=== PATIENT | female | born 1955 | race Hispanic/Latino ===

== ENCOUNTER 2016-11-28 05:44 | Day surgery (SDC) | payer MEDICARE ==
[2016-11-28 06:44] LABS: Basophils % (Auto) 0.8 % (0.0-1.8); Eosinophils % (Auto) 1.8 % (0.0-4.3); Hematocrit 35.7 % (30.3-42.9); Hemoglobin 11.8 gm/dl (10.1-14.3); Mean Corpuscular HGB Conc 33 % (30-34); Mean Corpuscular Hemoglobin 33 pg (28-32); Mean Corpuscular Volume 100 fl (79-97); Platelet Count 148 K/mm3 (140-440); Red Blood Count 3.58 M/mm3 (3.65-5.03)
[2016-11-28 06:55] LABS: INR 1.23 (0.87-1.13)
[2016-11-28] MEDS ORDERED: NACL 0.9% 500 ML 500 ML IV SCH (07:00)
[2016-11-28 07:26] LABS: BUN/Creatinine Ratio 4.56; Calcium 9.2 mg/dL (8.4-10.2); Chloride 99.5 mmol/L (98-107)
[2016-11-28] MEDS ORDERED: VERSED ONE (08:02)
[2016-11-28] MEDS ORDERED: HEPARIN/NS 5000 UNIT/500ML(CATH LAB) 1,000 ML IR ONE (08:02)
[2016-11-28] MEDS ORDERED: SUBLIMAZE ONE (08:03)
[2016-11-28] MEDS ORDERED: NITROGLYCERIN SYRINGE 0 ML ONE (08:03)
[2016-11-28] MEDS ORDERED: XYLOCAINE 2% INFILTRATI ONE (08:03)
--- NOTE | 2016-11-28 09:05 | Discharge Summary ---
Short Stay Discharge Plan Activity: no driving until cleared by PCP (X 48HRS) Diet: low fat, low cholesterol, low salt Special Instructions: no heavy lifting, other (POST CARDIAC CATH INSTRUCTIONS) Additional Instructions: HOLD ELIQUIS FOR 48hrs POST CARDIAC CATH. Follow up with: ROBBY DALTON MD [Primary Care Provider] - 7 Days NORIS HUMPHRIES MD [Staff Physician] - 7 Days
[2016-11-28] MEDS ORDERED: ULTRAM ONE ×2 (10:14→14:01)
[2016-11-28] MEDS: ULTRAM PO PRN ×2 (10:45→14:00)
[2016-11-28 15:51] VITALS: BP 102/48
--- NOTE | 2016-11-29 15:04 | Cardiac Catherization Report ---
SEDATION: Intravenous Versed and fentanyl. TISSUE SAMPLES: None. PREPROCEDURE DIAGNOSIS: Unstable angina. POSTPROCEDURE DIAGNOSIS: Moderate coronary artery disease. HEMODYNAMICS: Central aortic pressure 156/67, left ventricular pressure 155/17. ANGIOGRAPHIC RESULTS: 1. Left ventricle: The ventriculogram reveals a normal sized left ventricle with normal systolic function. The ejection fraction is approximately 60%. There is probable left ventricular hypertrophy. 2. Right coronary artery: This is a codominant vessel and it is diffusely irregular without severe stenotic lesions. 3. Left coronary artery: This vessel is heavily calcified and is diffusely irregular. The left main is free of remarkable disease. The circumflex contains a distal 30% stenosis. The LAD system contains a mid 30% stenosis and an early distal 30% stenosis. The diagonal branch coming off the midportion of the vessel contains an osteal 70% stenosis and this is a fairly small caliber vessels. FINAL IMPRESSION: Recent symptoms suggestive of class 4 angina, improved. There is a 70% stenosis in a small diagonal vessel and normal left ventricular function. Consider other organ systems as possible etiology of this patient's chest pain. PLAN: Continue dialysis. Office followup within 7 days. Antianginal therapy. CAD risk factor modification. JOB# [id number] LASHELL/SHAKA
== END 2016-11-28 17:05 | disposition home or self-care (01) ==
LOC: CATHLABREC 05:44
PROVIDERS: ATTEND Internal Medicine
DX: I25.110 Atherosclerotic heart disease of native coronary artery with unstable angina pectoris (principal); E11.22 Type 2 diabetes mellitus with diabetic chronic kidney disease; N18.9 Chronic kidney disease, unspecified; I12.9 Hypertensive chronic kidney disease with stage 1 through stage 4 chronic kidney disease, or unspecified chronic kidney disease; E11.59 Type 2 diabetes mellitus with other circulatory complications; E78.5 Hyperlipidemia, unspecified; F17.210 Nicotine dependence, cigarettes, uncomplicated; I48.91 Unspecified atrial fibrillation; I27.2 Other secondary pulmonary hypertension; J44.9 Chronic obstructive pulmonary disease, unspecified; E66.3 Overweight; Z68.41 Body mass index [BMI] 40.0-44.9, adult; Z98.890 Other specified postprocedural states; Z72.89 Other problems related to lifestyle; Z98.62 Peripheral vascular angioplasty status; Z82.49 Family history of ischemic heart disease and other diseases of the circulatory system
CPT/HCPCS: 36415; 80048; 85025; 85610; 85730; 93005; 93010; 93458; J1644; J2250; J3010; J7040; Q9967

== ENCOUNTER 2017-12-05 08:32 | Outpatient (CLI) | payer MEDICARE ==
[2017-12-05] MEDS ORDERED: XYLOCAINE TOPICAL 4% TP ONE (09:20)
== END 2017-12-05 08:33 | disposition home or self-care (01) ==
LOC: WOUND 08:32
PROVIDERS: ATTEND Surgery
DX: E11.621 Type 2 diabetes mellitus with foot ulcer (principal); L97.521 Non-pressure chronic ulcer of other part of left foot limited to breakdown of skin; I10 Essential (primary) hypertension; E66.9 Obesity, unspecified; Z99.2 Dependence on renal dialysis; Z90.710 Acquired absence of both cervix and uterus; F17.200 Nicotine dependence, unspecified, uncomplicated; Z68.42 Body mass index [BMI] 45.0-49.9, adult
CPT/HCPCS: 11042; G0463

== ENCOUNTER 2017-12-09 06:25 | Day surgery (SDC) | payer MEDICARE ==
[~2017-12-09 06:25] MED LIST: ANCEF/STERILE WATER 2 GM/20 ML 2 GM/20 ML SYRINGE IV NR; NACL 0.9% 1000 ML 1,000 ML IV SCH
[2017-12-09] MEDS ORDERED: NACL BACTERIOSTATIC INFILTRATI ONE (06:26)
[2017-12-09] MEDS ORDERED: XYLOCAINE MPF 2% ONE (07:18)
[2017-12-09] MEDS ORDERED: DILAUDID ONE (07:19)
[2017-12-09] MEDS ORDERED: DIPRIVAN 10 MG/ML IV ONE (07:19)
[2017-12-09] MEDS ORDERED: GELFOAM TP ONE ×2 (07:24→09:31)
[2017-12-09] MEDS ORDERED: HEPARIN 10,000 UNITS/10 ML ONE (07:24)
[2017-12-09] MEDS ORDERED: MARCAINE-EPI 0.5%-1:200,000 INFILTRATI ONE (07:24)
[2017-12-09] MEDS ORDERED: NACL 0.9% 500 ML 500 ML ONE (07:24)
[2017-12-09] MEDS ORDERED: PROTAMINE SULFATE ONE (07:26)
[2017-12-09] MEDS ORDERED: XYLOCAINE 1% 20 mL ONE (07:26)
[2017-12-09] MEDS ORDERED: PAPAVERINE ONE (07:26)
[2017-12-09] MEDS ORDERED: THROMBIN (BOVINE) TP ONE ×2 (07:26→09:31)
[2017-12-09] MEDS ORDERED: DILAUDID IV PRN (07:27)
[2017-12-09] MEDS ORDERED: SODIUM BICARBONATE ONE (07:27)
[2017-12-09] MEDS ORDERED: ZOFRAN IV PRN (07:27)
[2017-12-09] MEDS ORDERED: PROAIR IH ONE ×2 (07:40→09:39)
[2017-12-09] MEDS ORDERED: AMIDATE IV ONE (07:45)
[2017-12-09] MEDS ORDERED: ZEMURON IV ONE (07:47)
[2017-12-09] MEDS ORDERED: NEO SYNEPHRINE ONE (07:54)
[2017-12-09] MEDS ORDERED: PEPCID IV NR (08:00)
[2017-12-09] MEDS ORDERED: VERSED IV NR (08:00)
[2017-12-09 08:05] LABS: Hematocrit 34.4 % (30.3-42.9); Mean Corpuscular HGB Conc 32 % (30-34); Mean Corpuscular Hemoglobin 32 pg (28-32); Mean Corpuscular Volume 101 fl (79-97); Platelet Count 126 K/mm3 (140-440)
[2017-12-09 08:09] LABS: Calcium 9.4 mg/dL (8.4-10.2)
[2017-12-09 08:10] LABS: Red Cell Distribution Width 24.3 % (13.2-15.2)
--- NOTE | 2017-12-09 08:20 | Anesthesia Consultation ---
Anesthesia Consult and Med Hx Date of service: 12/09/17 - Airway Anesthetic Teeth Evaluation: Dentures, Edentulous ROM Head & Neck: Adequate Mental/Hyoid Distance: Adequate Mallampati Class: Class I Intubation Access Assessment: Probably Good - Pulmonary Exam CTA: Yes - Cardiac Exam Anesthetic Concerns: atrial fibrillation - Pre-Operative Health Status ASA Pre-Surgery Classification: ASA4 Proposed Anesthetic Plan: General - Pulmonary Hx Smoking: Yes (1/2 PPD X 40 YRS) Hx Asthma: Yes (albuterol MDI 3 puffs preop) COPD: Yes (DAILY INHALER) Hx Pneumonia: Yes Hx Sleep Apnea: Yes - Cardiovascular System Hx Hypertension: Yes (X 15 YRS) Hx Coronary Artery Disease: Yes Hx Heart Attack/AMI: No Hx Cardia Arrhythmia: Yes (a-fib, on coumadin) Hx Peripheral Vascular Disease: Yes - Gastrointestinal Hx Gastroesophageal Reflux Disease: Yes (no current symptoms) - Endocrine Hx End Stage Renal Disease: Yes (AVG LEFT ARM) Hx Liver Disease: Yes (fatty liver) Hx Insulin Dependent Diabetes: Yes - Hematic Hx Anemia: Yes - Other Systems Hx Cancer: No Hx Obesity: Yes (morbid) - Additional Comments Anesthesia Medical History Comments: no GAC, no FHAC
[2017-12-09] MEDS ORDERED: NITROGLYCERIN SYRINGE 9 ML ONE (09:20)
[2017-12-09] MEDS ORDERED: NACL 0.9% IR ONE (09:30)
[2017-12-09] MEDS ORDERED: MARCAINE-EPI/PF 0.5%-1:200,000 INFILTRATI ONE (09:31)
[2017-12-09] MEDS ORDERED: NITROGLYCERIN SYRINGE UD ONE ×2 (09:31)
[2017-12-09] MEDS ORDERED: HEPARIN 10,000 UNITS/10 ML 2,000 UNIT in NACL 0.9% 500 ML 500 ML IR ONE (09:32)
[2017-12-09] MEDS ORDERED: ADRENALIN ONE (09:39)
[2017-12-09 10:09] LABS: Total Cells Counted 100
[2017-12-09 10:10] LABS: Anisocytosis 2+; Macrocytosis 1+; Platelet Estimate Cons; Poikilocytosis 1+; Tear Drop Cells Few
--- NOTE | 2017-12-09 11:04 | Short Stay Summary ---
Short Stay Documentation Date of service: 12/09/17 - History H&P: obtained from office - Allergies and Medications Current Medications: Allergies No Known Allergies Allergy (Verified 11/17/13 08:20) Home Medications Medication Instructions Recorded Confirmed Last Taken Type Lisinopril [Zestril TAB] 20 mg PO QHS #30 tablet 10/21/15 12/04/17 11/27/16 Rx ALBUTEROL Inhaler [ProAir HFA 2 puff IH BID 11/28/16 12/04/17 11/28/16 History Inhaler] Carvedilol [Coreg] 3.125 mg PO BID 11/28/16 12/04/17 11/27/16 History Montelukast [Singulair] 10 mg PO DAILY 11/28/16 12/04/17 11/27/16 History Pravastatin Sodium 40 mg PO DAILY 11/28/16 12/04/17 11/27/16 History Sennosides/Docusate Sodium [Stool 1 each PO DAILY 11/28/16 12/04/17 11/27/16 History Softener Tablet] Vit B Comp No.3/Folic/C/Biotin 1 each PO DAILY 11/28/16 12/04/17 11/27/16 History [Nephro-Fabian Rx Tablet] Calcium Acetate [Phoslo] 667 mg PO TID 12/04/17 12/04/17 Unknown History FLUoxetine HCL [PROzac] 40 mg PO QDAY 12/04/17 12/04/17 Unknown History Midodrine HCl 10 mg PO BID 12/04/17 12/04/17 Unknown History Pantoprazole [Protonix] 40 mg PO QDAY 12/04/17 12/04/17 Unknown History Temazepam [Restoril] 15 mg PO QHS PRN 12/04/17 12/04/17 Unknown History Apixaban [Eliquis] 2.5 mg PO BID 12/05/17 12/05/17 Unknown History Biotin 1 mg PO DAILY 12/05/17 12/05/17 Unknown History Fluticasone [Flonase] 1 spray NS QDAY 12/05/17 12/05/17 Unknown History Pantoprazole [Protonix] 40 mg PO QDAY 12/05/17 12/05/17 Unknown History Active Medications Famotidine (Pepcid) 20 mg IV PREOP NR Stop: 12/09/17 12:00 Last Admin: 12/09/17 07:45 Dose: 20 mg Hydromorphone HCl (Dilaudid) 0.5 mg IV Q10MIN PRN PRN Reason: Pain , Severe (7-10) Stop: 12/09/17 13:00 Cefazolin Sodium (Ancef/Sterile Water 2 Gm/20 Ml) 2 gm in 20 mls @ 80 mls/hr IV PREOP NR; Protocol Stop: 12/09/17 23:59 Sodium Chloride (Nacl 0.9% 1000 Ml) 1,000 mls @ 42 mls/hr IV DIRECT ANIBAL Last Admin: 12/09/17 07:35 Dose: 42 mls/hr Midazolam HCl (Versed) 2 mg IV PREOP NR Stop: 12/09/17 23:59 Last Admin: 12/09/17 08:06 Dose: 2 mg Ondansetron HCl (Zofran) 4 mg IV ONCE PRN PRN Reason: Nausea And Vomiting Stop: 12/09/17 12:00 - Brief post op/procedure progress note Date of procedure: 12/09/17 Pre-op diagnosis: failing av fistula left arm Post-op diagnosis: same Procedure: open revision of fistula left arm Anesthesia: GETA, local Findings: good thrill at end of procedure, hand well perfused Surgeon: DAVIDSON DAS Braiding Machine Tender: CLAUDIA STEPHENS Estimated blood loss: minimal Pathology: none Condition: stable - Hospital course Hospital course: benign - Disposition Condition at discharge: Good Disposition: DC-01 TO HOME OR SELFCARE Short Stay Discharge Plan Activity: advance as tolerated Diet: advance as tolerated Wound: per your surgeon's advice Follow up with: DAVIDSON DAS MD [Staff Physician] - 7 Days Prescriptions: HYDROcodone/APAP 5-325 [[place] 5/325] 1 each PO Q4HR PRN #30 tablet PRN Reason: Pain
--- NOTE | 2017-12-09 11:08 | Operative Report ---
Operative Report Operative Report: Date of procedure: 12/09/2017 Pre-operative diagnosis: Failing arteriovenous fistula, left upper extremity Post-operative diagnosis: Same Procedure name(s): Revision of left upper extremity radiocephalic fistula at the wrist Surgeon: Shabbir Payne MD Rhinestone Setter: [RYAN Sue] Anesthesia: Gen. with local supplementation EBL: Minimal Operative indication: Patient is a 62-year-old woman with end-stage renal failure. She has a failing arteriovenous fistula at the left wrist. She presents now for revision of the arterial anastomosis. Findings: Excellent thrill in the fistula at the end of the procedure. The left hand was warm and well-perfused. Procedure: The patient was placed on the table in supine position and given appropriate anesthesia. The area over the left arm was prepped with a ChloraPrep solution and draped in the usual sterile fashion. Real-time ultrasound was used to identify the radial artery and to select a segment of it proximal to the wrist which was in good condition. The skin was marked appropriately. The site of the skin incision was then infiltrated with half percent Marcaine with epinephrine. A linear incision was made along the radial artery. Dissection was carried out to identify the distal end of the R [place] venous fistula near the radial anastomosis. There was a large amount of redundant vein in the area and this was freed up from the surrounding tissue. The radial artery was then dissected free from the surrounding tissue slightly proximally to this. There was an excellent pulse in the radial artery. The radial artery appeared to be in reasonable condition. Patient was given 2000 units of intravenous heparin and 3 minutes were allowed to pass. An arteriotomy was made in the radial artery after it was controlled. The arteriotomy was approximately centimeter in length. The arterial end of the fistula was then divided from its arterial anastomosis with the radial artery distally. There was a stump of the vein left on the artery for closure. The vein was then transferred more proximally to the normal portion of the radial artery. An anastomosis created between the 2 vessels using running 6-0 Prolene. The vessels were flushed and Benadryl of any air or debris. The anastomosis is completed and flow was started into the arterial venous fistula without complication. There was excellent thrill in the arterial venous fistula. Meticulous hemostasis is obtained. Closure was done with 3-0 Vicryl on the subcutaneous tissue. 4-0 PDS was used on the skin. Sterile dressings were applied. The patient tolerated the procedure well. Sponge, needle, and instrument counts were reported as correct. Patient had an excellent thrill in the arterial venous fistula along the entire lower arm. There was excellent perfusion of the hand. She was taken from the operating room to the recovery room in stable condition.
--- NOTE | 2017-12-09 11:12 | Post Anesthesia Evaluation ---
- Post Anesthesia Evaluation Patient Participated: Yes Airway Patent: Yes Stable Respiratory Function: Yes Nausea/Vomiting: No Temp > 96.8F: Yes Pain Manageable: Yes Adequeate Hydration: Yes Anesthesia Complications: No
[2017-12-09] MEDS ORDERED: ZOFRAN IV ONE (11:48)
[2017-12-09] MEDS ORDERED: PHENERGAN PR ONE (13:45)
[2017-12-09 15:53] VITALS: BP 103/56
== END 2017-12-09 15:05 | disposition home or self-care (01) ==
LOC: OR 06:25
PROVIDERS: ATTEND Surgery Vascular Surgery
DX: T82.510A Breakdown (mechanical) of surgically created arteriovenous fistula, initial encounter (principal); E11.22 Type 2 diabetes mellitus with diabetic chronic kidney disease; I13.2 Hypertensive heart and chronic kidney disease with heart failure and with stage 5 chronic kidney disease, or end stage renal disease; N18.6 End stage renal disease; I50.9 Heart failure, unspecified; J44.9 Chronic obstructive pulmonary disease, unspecified; G47.30 Sleep apnea, unspecified; I25.10 Atherosclerotic heart disease of native coronary artery without angina pectoris; I48.91 Unspecified atrial fibrillation; K21.9 Gastro-esophageal reflux disease without esophagitis; I73.9 Peripheral vascular disease, unspecified; E78.00 Pure hypercholesterolemia, unspecified; M81.0 Age-related osteoporosis without current pathological fracture; F32.9 Major depressive disorder, single episode, unspecified; F17.210 Nicotine dependence, cigarettes, uncomplicated; E66.01 Morbid (severe) obesity due to excess calories; Z68.41 Body mass index [BMI] 40.0-44.9, adult; Z79.01 Long term (current) use of anticoagulants; Z79.899 Other long term (current) drug therapy; Z98.49 Cataract extraction status, unspecified eye; Z90.49 Acquired absence of other specified parts of digestive tract; Z98.890 Other specified postprocedural states; Y83.2 Surgical operation with anastomosis, bypass or graft as the cause of abnormal reaction of the patient, or of later complication, without mention of misadventure at the time of the procedure
CPT/HCPCS: 36415; 36832; 80048; 82962; 85007; 85025; A4649; J0171; J0690; J1170; J1644; J2250; J2370; J2405; J2704; J7030; J7040; C1757; J2440; J2720

== ENCOUNTER 2017-12-19 08:10 | Outpatient (CLI) | payer MEDICARE ==
[2017-12-19] MEDS ORDERED: XYLOCAINE TOPICAL 4% TP ONE ×2 (08:44→15:36)
[2017-12-19] MEDS ORDERED: SILVER NITRATE TP ONE (09:32)
[2017-12-22] MEDS ORDERED: SILVER NITRATE TP ONE (07:51)
== END 2017-12-19 08:11 | disposition home or self-care (01) ==
LOC: WOUND 08:10
PROVIDERS: ATTEND Surgery
DX: E11.621 Type 2 diabetes mellitus with foot ulcer (principal); L97.521 Non-pressure chronic ulcer of other part of left foot limited to breakdown of skin; I10 Essential (primary) hypertension; E66.9 Obesity, unspecified; F17.200 Nicotine dependence, unspecified, uncomplicated; Z99.2 Dependence on renal dialysis; Z90.710 Acquired absence of both cervix and uterus; Z68.42 Body mass index [BMI] 45.0-49.9, adult

== ENCOUNTER 2018-01-09 08:40 | Outpatient (CLI) | payer MEDICARE ==
[2018-01-09] MEDS ORDERED: XYLOCAINE TOPICAL 4% TP ONE ×2 (08:57→09:36)
== END 2018-01-09 08:41 | disposition home or self-care (01) ==
LOC: WOUND 08:40
PROVIDERS: ATTEND Surgery
DX: E11.621 Type 2 diabetes mellitus with foot ulcer (principal); L97.521 Non-pressure chronic ulcer of other part of left foot limited to breakdown of skin; L97.511 Non-pressure chronic ulcer of other part of right foot limited to breakdown of skin; I10 Essential (primary) hypertension; E66.9 Obesity, unspecified; F17.200 Nicotine dependence, unspecified, uncomplicated; Z99.2 Dependence on renal dialysis; Z90.710 Acquired absence of both cervix and uterus; Z68.42 Body mass index [BMI] 45.0-49.9, adult

== ENCOUNTER 2018-01-30 09:37 | Outpatient (CLI) | payer MEDICARE ==
[2018-01-30] MEDS ORDERED: XYLOCAINE TOPICAL 4% TP ONE ×2 (09:43→09:57)
== END 2018-01-30 09:38 | disposition home or self-care (01) ==
LOC: WOUND 09:37
PROVIDERS: ATTEND Surgery
DX: E11.621 Type 2 diabetes mellitus with foot ulcer (principal); L97.521 Non-pressure chronic ulcer of other part of left foot limited to breakdown of skin; L97.511 Non-pressure chronic ulcer of other part of right foot limited to breakdown of skin; I10 Essential (primary) hypertension; E66.9 Obesity, unspecified; F17.200 Nicotine dependence, unspecified, uncomplicated; Z99.2 Dependence on renal dialysis; Z90.710 Acquired absence of both cervix and uterus; Z68.42 Body mass index [BMI] 45.0-49.9, adult

== ENCOUNTER 2018-02-06 08:23 | Outpatient (CLI) | payer MEDICARE ==
[2018-02-06] MEDS ORDERED: XYLOCAINE TOPICAL 4% TP ONE ×2 (08:46→09:03)
[2018-02-06] MEDS ORDERED: NACL 0.9% 500 ML IR ONE (08:46)
[2018-02-06] MEDS ORDERED: NACL 0.9% IR PRN (09:03)
== END 2018-02-06 08:24 | disposition home or self-care (01) ==
LOC: WOUND 08:23
PROVIDERS: ATTEND Surgery
DX: E11.621 Type 2 diabetes mellitus with foot ulcer (principal); L97.521 Non-pressure chronic ulcer of other part of left foot limited to breakdown of skin; I10 Essential (primary) hypertension; E66.9 Obesity, unspecified; F17.200 Nicotine dependence, unspecified, uncomplicated; Z99.2 Dependence on renal dialysis; Z90.710 Acquired absence of both cervix and uterus; Z68.42 Body mass index [BMI] 45.0-49.9, adult

== ENCOUNTER 2018-02-13 08:51 | Outpatient (CLI) | payer MEDICARE ==
[2018-02-13] MEDS ORDERED: XYLOCAINE TOPICAL 4% TP ONE ×2 (09:02→15:26)
== END 2018-02-13 08:52 | disposition home or self-care (01) ==
LOC: WOUND 08:51
PROVIDERS: ATTEND Surgery
DX: E11.621 Type 2 diabetes mellitus with foot ulcer (principal); L97.521 Non-pressure chronic ulcer of other part of left foot limited to breakdown of skin; I10 Essential (primary) hypertension; E66.9 Obesity, unspecified; F17.200 Nicotine dependence, unspecified, uncomplicated; Z99.2 Dependence on renal dialysis; Z90.710 Acquired absence of both cervix and uterus; Z68.43 Body mass index [BMI] 50.0-59.9, adult
CPT/HCPCS: 99214; G0463